=== PATIENT | female | born 1965 | race Caucasian/White ===

== ENCOUNTER → 2018-07-13 10:59 | Outpatient (CLI) | payer OTHER, SELFPAY ==
--- NOTE | 2018-07-13 | DI.MG.S_ITS ---
BILATERAL DIGITAL SCREENING MAMMOGRAM 3D/2D WITH CAD: 07/13/2018 CLINICAL: Routine screening. Comparison is made to exams dated: 07/11/2017 mammogram, 07/05/2016 mammogram, and 07/03/2015 mammogram - [facility]. There are scattered fibroglandular elements in both breasts. Current study was also evaluated with a Computer Aided Detection (CAD) system. No significant masses, calcifications, or other findings are seen in either breast. There has been no significant interval change. IMPRESSION: NEGATIVE There is no mammographic evidence of malignancy. A 1 year screening mammogram is recommended. This exam was interpreted at Station ID: [id number]. NOTE: For mammograms, a report in lay terms will be sent to the patient. Approximately 15% of breast malignancies will not be visualized mammographically. In the management of a palpable breast mass, a negative mammogram must not discourage biopsy of a clinically suspicious lesion. Electronically Signed By: Missy gregory/ban:07/13/2018 11:54:10 letter sent: Normal Exam ACR BI-RADS Category 1: Negative 3341F
== END ==
PROVIDERS: PCP Family Medicine; Visit Provider Family Medicine
DX: Z12.31 Encounter for screening mammogram for malignant neoplasm of breast (principal)
CPT/HCPCS: 77063; 77067

== ENCOUNTER → 2018-07-27 07:58 | Outpatient (CLI) | payer OTHER, SELFPAY ==
[2018-07-27 09:20] LABS: Alanine Aminotransferase 27 IU/L (9-52); Albumin 4.1 g/dL (3.5-5.0); Albumin Globulin Ratio 1.4 (1.0-2.8); Alkaline Phosphatase 64 U/L (38-126); Aspartate Aminotransferase 22 IU/L (14-36); Bilirubin Total 0.5 mg/dL (0.2-1.3); Bilirubin Unconjugated 0.3 mg/dL (0.0-1.1); Blood Urea Nitrogen 16 mg/dL (7-17); Calcium 8.6 mg/dL (8.4-10.2); Carbon Dioxide 29 mmol/L (22-32); Chloride 102 mmol/L (98-107); Cholesterol 192 mg/dL (140-199); Estimated Glomerular Filt Rate > 60.0 mL/min (>60); Globulin 2.9 g/dL (1.7-4.1); Glucose 86 mg/dL (70-100); HDL Cholesterol 93 mg/dL (40-60); HEMOLYSIS < 15 (0-50); LDL Cholesterol Calculated 81 mg/dL (<100); Potassium 4.2 mmol/L (3.4-5.1); Sodium 140 mmol/L (137-145); Triglycerides 88 mg/dL (35-150)
[2018-07-27 10:06] LABS: Vitamin D 25 Hydroxy (D3) 18.7 ng/mL (30.0-100.0)
== END ==
PROVIDERS: PCP Family Medicine; Visit Provider Podiatrist
DX: B35.3 Tinea pedis (principal); E55.9 Vitamin D deficiency, unspecified; E78.00 Pure hypercholesterolemia, unspecified; K76.89 Other specified diseases of liver; Z00.00 Encounter for general adult medical examination without abnormal findings
CPT/HCPCS: 36415; 80053; 80061; 80076; 82306

== ENCOUNTER → 2019-01-29 08:15 | Outpatient (CLI) | payer OTHER, SELFPAY ==
--- NOTE | 2019-01-29 08:17 | DI.RAD.S_ITS ---
PROCEDURE: FL BARIUM SWALLOW W SPEECH INDICATIONS: dysphagia and choking TECHNIQUE: Examination was conducted in conjunction with speech pathology per standard protocol. In the lateral projection, filming was performed of the patient swallowing. AP projection filming may also be performed with patient swallowing. COMPARISON: [facility], , BARIUM SWALLOW, 12/30/2014, 8:17. FINDINGS: Function: The oral preparatory phase appears normal, with proper containment. The subsequent oral propulsive phase, pharyngeal phase, and esophageal phase of swallowing also appear normal with all proffered substances. No laryngotracheal penetration or aspiration. No pathologic vallecular pooling. There is esophageal dysmotility. There is slightly delayed transit at the level of C5-C6 where there is mild anterior osteophyte formation. Morphology: No cricopharyngeal bar is identified. No cervical esophageal webs. No Zenker's diverticulum. No strictures. IMPRESSION: No tracheal aspiration. Incidentally noted esophageal dysmotility. Dictated by: Florian Simth M.D. on 01/29/2019 at 9:50 Approved by: Florian Smith M.D. on 01/29/2019 at 9:52
--- NOTE | 2019-01-29 14:13 | ST.SWALLOW ---
Care Team Visit Care Team Role Provider Type Addie Gao DO Attending Provider Physician Primary Care Provider Specialty: Family Practice Address: [address] [place] [address], [id number] Email: [email or web address] Modified Barium Swallow Study CLINICAL ANALYST Modified Barium Swallow Study Start: 01/29/19 11:02 Freq: Status: Active Protocol: Document 01/29/19 11:02 TLC (Rec: 01/29/19 11:11 TLC [id number]) Modified Barium Swallow Study Total Time Visit Start Time 08:30 Visit Stop Time 09:00 Total Visit Minutes [address] Gao Reason for Referral Dysphagia and choking Setting Setting Outpatient Care Patient Information Identification Type Name Patient History Mrs. Selby is a 53 year old with past medical history significant for neck injury, neck pain, dysphagia, anxiety and esophageal dilation ~5 years ago. She reports the last 4-5 months have been terrible with many episodes of choking and 5 instances of needing the Heimleich maneuver . Results of barium swallow study in 2014 revealed early or small Zenker's diverticulum with no other abnormality. A cervicial spine x-ray from December of 2017 revealed degenerative cervical disease C4-5 and C5- 6. Subjective Observations Mrs. Selby arrived on time and was pleasant and cooperative during the study. She reported she had anxiety about the study due to concern for choking. Patient Positioning Position View Lat-A/P Imaging Lateral View Textures Administered Trials Presented Thin Liquid via Spoon Thin Liquid via Cup [place] Liquid via Spoon [place] Liquid via Cup Honey Liquid via Spoon Pudding Thick Liquid via Spoon Regular Textures Oral Phase Source: MBSIMP (TM) (C) Bolus Specific Scoring Grid Lip Closure No Impairment (WNL) Tongue Control During Bolus Hold No Impairment (WNL) Bolus Prep/Mastication No Impairment (WNL) Bolus Transport/Lingual Motion No Impairment (WNL) Oral Residue No Impairment (WNL) Residue Clearing No Impairment (WNL) Additional Oral Phase Observations No oral dysphagia observed during the study. Pharyngeal Phase Source: MBSIMP (TM) (C) Bolus Specific Scoring Grid Soft Palate Elevation No Impairment (WNL) Tongue Base Strength/Range of Motion No Impairment (WNL) Clearance of Residue Along Tongue Base No Impairment (WNL) Laryngeal Elevation No Impairment (WNL) Anterior Hyoid Movement No Impairment (WNL) Epiglottic Range of Motion No Impairment (WNL) Vallecular Residue Yes: trace amount of residue in valleculae Laryngeal Vestibular Closure No Impairment (WNL) Upper Esophageal Sphincter Opening No Impairment (WNL) A/P View Textures Administered Trials Presented [place] Liquid via Spoon A/P View Observations Pharyngeal Contraction No Impairment (WNL) Esophageal Function Slowed Clearing Esophageal Clearance Upright Position Minimal Impairment Additional Observations Barium tablet attempted, but Mrs. Selby was unable to swallow. Esophagel retention observed in A-P view with trial of nectar thick liquid. Esophageal Observations Esophageal Function Observed delayed transit at the level of C5-C6 where there is mild anterior osteophyte formation per radiologist's report. Clinical Impressions Dysphagia Type Esophageal Findings No oral or pharyngeal dysphagia observed. Trace vallecular residue cleared with consecutive swallows. Residue observed to collect above osteophyte at C5-6 which impeded bolus flow with all consistencies. Amount of residue increased with thicker consistencies. Dry swallows were successful in clearing residue. Recommend follow up with PCP, GI follow-up at discretion of PCP given patient's history of esophageal dilation as well as Ortho consult at discretion of PCP given dx of degenerative cervical disease. Patient Appropriate for Therapy No Recommendations Diet Liquids Order Thin Diet Order Regular Medication Recommendation Whole in Carrier One at a Time Aspiration Precautions Recommended Precautions Upright at 90 Degrees Small Bites/Sips Double Swallow Treatment Plan Recommended Referrals Other GI Consult Additional Recommended Referrals Orthopedic
== END ==
PROVIDERS: PCP Family Medicine; Visit Provider Family Medicine
DX: R13.10 Dysphagia, unspecified (principal); K22.4 Dyskinesia of esophagus; T17.308A Unspecified foreign body in larynx causing other injury, initial encounter
CPT/HCPCS: 74230; 92611

== ENCOUNTER → 2019-04-28 09:12 | Outpatient (CLI) | payer OTHER, SELFPAY | PROVIDERS: PCP Family Medicine; Visit Provider Nurse Practitioner Family | DX: N89.8 Other specified noninflammatory disorders of vagina (principal) | CPT/HCPCS: 87210 ==

== ENCOUNTER → 2019-06-18 09:20 | Outpatient (CLI) | payer OTHER, SELFPAY ==
[2019-06-18 09:58] LABS: Add Manual Diff / Slide Review NO; Basophils Absolute Auto 0 /uL (0-100); Basophils Percent Auto 0.7 % (0-2); Eosinophils Absolute Auto 100 /uL (0-450); Eosinophils Percent Auto 1.5 % (2-4); Hemoglobin 13.7 g/dL (12.0-16.0); Lymphocytes Absolute Auto 1300 /uL (1100-4500); Lymphocytes Percent Auto 20.3 % (25-40); Mean Corpuscular HGB Conc 33.4 % (30-36); Mean Corpuscular Volume 89.9 fL (80-100); Monocytes Absolute Auto 800 /uL (0-900); Neutrophils Absolute Auto 4300 /uL (1500-7000); Neutrophils Percent Auto 65.5 % (50-75); Platelet Count 211 X10^3/uL (150-400); Red Blood Cell Count 4.56 X10^6/uL (4.0-5.2); Red Cell Distribution Width 13.9 % (11.6-14.8); White Blood Cell Count 6.5 X10^3/uL (4.5-11.0)
[2019-06-18 10:32] LABS: Alanine Aminotransferase 14 IU/L (9-52); Albumin 4.6 g/dL (3.5-5.0); Albumin Globulin Ratio 1.5 (1.0-2.8); Alkaline Phosphatase 96 U/L (38-126); Aspartate Aminotransferase 22 IU/L (14-36); BUN Creatinine Ratio 18.6 (6-22); Bilirubin Total 0.7 mg/dL (0.2-1.3); Blood Urea Nitrogen 13 mg/dL (7-17); Calcium 9.6 mg/dL (8.4-10.2); Carbon Dioxide 29 mmol/L (22-32); Chloride 101 mmol/L (98-107); Cholesterol 223 mg/dL (140-199); Estimated Glomerular Filt Rate > 60.0 mL/min (>60); Glucose 85 mg/dL (70-100); HDL Cholesterol 104 mg/dL (40-60); HEMOLYSIS < 15 (0-50); LDL Cholesterol Calculated 96 mg/dL (<100); Potassium 4.4 mmol/L (3.4-5.1); Sodium 140 mmol/L (137-145); Total Protein 7.6 g/dL (6.3-8.2); Triglycerides 116 mg/dL (35-150)
[2019-06-18 10:47] LABS: Vitamin D 25 Hydroxy (D3) 28.4 ng/mL (30.0-100.0)
== END ==
PROVIDERS: PCP Family Medicine; Visit Provider Family Medicine
DX: Z13.220 Encounter for screening for lipoid disorders (principal); R13.10 Dysphagia, unspecified; E55.9 Vitamin D deficiency, unspecified
CPT/HCPCS: 36415; 80053; 80061; 82306; 85025

== ENCOUNTER → 2019-07-15 07:51 | Outpatient (CLI) | payer OTHER, SELFPAY ==
--- NOTE | 2019-07-15 07:53 | DI.MG.S_ITS ---
BILATERAL DIGITAL SCREENING MAMMOGRAM 3D/2D WITH CAD: 07/15/2019 CLINICAL: Routine screening. Comparison is made to exams dated: 07/13/2018 mammogram, 07/11/2017 mammogram, 07/05/2016 mammogram, 07/03/2015 mammogram, 07/01/2014 mammogram, and 06/21/2013 mammogram - [facility]. There are scattered fibroglandular elements in both breasts. Current study was also evaluated with a Computer Aided Detection (CAD) system. No significant masses, calcifications, or other findings are seen in either breast. There has been no significant interval change. IMPRESSION: NEGATIVE There is no mammographic evidence of malignancy. A 1 year screening mammogram is recommended. This exam was interpreted at Station ID: [id number]. NOTE: For mammograms, a report in lay terms will be sent to the patient. Approximately 15% of breast malignancies will not be visualized mammographically. In the management of a palpable breast mass, a negative mammogram must not discourage biopsy of a clinically suspicious lesion. Electronically Signed By: Terence brothers/ban:07/15/2019 08:22:10 letter sent: Normal Exam ACR BI-RADS Category 1: Negative 3341F
== END ==
PROVIDERS: PCP Family Medicine; Visit Provider Family Medicine
DX: Z12.31 Encounter for screening mammogram for malignant neoplasm of breast (principal)
CPT/HCPCS: 77063; 77067

== ENCOUNTER → 2019-08-19 10:09 | Outpatient (CLI) | payer OTHER, SELFPAY ==
[2019-08-19 10:13] LABS: Bacteria Urine None Seen; RBC Urine None Seen (0-5/HPF)
[2019-08-19 10:45] LABS: Appearance Urine UA CLEAR; Bilirubin Urine UA NEGATIVE (NEGATIVE); Color Urine UA YELLOW; Glucose Urine UA NEGATIVE (Negative); Ketones Urine UA NEGATIVE (NEGATIVE); Leukocyte Esterase Urine UA TRACE (NEGATIVE); Nitrite Urine UA NEGATIVE (Negative); Occult Blood Urine UA NEGATIVE (Negative); Protein Urine UA NEGATIVE (Negative); Specific Gravity Urine UA <=1.005 (1.000-1.035); Urobilinogen Urine UA 0.2 E.U./dL (0.2)
[2019-08-19 10:55] LABS: Culture Indicated Urine Specimen Cultured; Squamous Epithelial Cell Urine 0-1 /HPF (0-5/HPF); WBC Urine 5-10/HPF (0-5/HPF)
== END ==
PROVIDERS: PCP Family Medicine; Visit Provider Family Medicine
DX: R30.0 Dysuria (principal)
CPT/HCPCS: 81001; 87077; 87086; 87186

== ENCOUNTER → 2020-01-10 09:06 | Outpatient (CLI) | payer OTHER, SELFPAY ==
[2020-01-10 09:25] LABS: Bacteria Urine None Seen
[2020-01-10 10:18] LABS: Appearance Urine UA SL CLOUDY; Bilirubin Urine UA 1+ (NEGATIVE); Color Urine UA RED; Glucose Urine UA TRACE g/dL (Negative); Ketones Urine UA NEGATIVE (NEGATIVE); Leukocyte Esterase Urine UA 2+ (NEGATIVE); Nitrite Urine UA POSITIVE (Negative); Occult Blood Urine UA 3+ (Negative); Protein Urine UA 3+ (Negative); Specific Gravity Urine UA <=1.005 (1.000-1.035); Urobilinogen Urine UA 0.2 E.U./dL (0.2)
[2020-01-10 10:52] LABS: Ictotest Urine Negative (Negative)
[2020-01-10 10:53] LABS: Culture Indicated Urine Specimen Cultured; RBC Urine >100/HPF (0-5/HPF); Squamous Epithelial Cell Urine 1-5 /HPF (0-5/HPF); WBC Urine 10-30/HPF (0-5/HPF)
== END ==
PROVIDERS: PCP Family Medicine; Referring Provider Family Medicine; Visit Provider Family Medicine
DX: R30.0 Dysuria (principal); R35.0 Frequency of micturition
CPT/HCPCS: 81001; 87086

== ENCOUNTER → 2020-01-20 09:19 | Outpatient (CLI) | payer OTHER, SELFPAY ==
[2020-01-20 09:26] LABS: Bacteria Urine None Seen; RBC Urine None Seen (0-5/HPF); WBC Urine None Seen (0-5/HPF)
[2020-01-20 10:15] LABS: Appearance Urine UA CLEAR; Bilirubin Urine UA NEGATIVE (NEGATIVE); Color Urine UA YELLOW; Glucose Urine UA NEGATIVE (Negative); Ketones Urine UA NEGATIVE (NEGATIVE); Leukocyte Esterase Urine UA NEGATIVE (NEGATIVE); Nitrite Urine UA NEGATIVE (Negative); Occult Blood Urine UA NEGATIVE (Negative); Protein Urine UA NEGATIVE (Negative); Specific Gravity Urine UA <=1.005 (1.000-1.035); Urobilinogen Urine UA 0.2 E.U./dL (0.2)
[2020-01-20 10:17] LABS: pH Urine UA 6.5 (4.5-8.0)
[2020-01-20 10:29] LABS: Culture Indicated Urine Cult Not Indicated; Squamous Epithelial Cell Urine 0-1 /HPF (0-5/HPF)
== END ==
PROVIDERS: PCP Family Medicine; Referring Provider Family Medicine; Visit Provider Family Medicine
DX: R30.0 Dysuria (principal)
CPT/HCPCS: 81001

== ENCOUNTER → 2020-07-29 08:58 | Outpatient (CLI) | payer OTHER, SELFPAY ==
--- NOTE | 2020-07-29 08:58 | DI.MG.S_ITS ---
BILATERAL DIGITAL SCREENING MAMMOGRAM 3D/2D WITH CAD: 07/29/2020 CLINICAL: Routine screening. Comparison is made to exams dated: 07/15/2019 mammogram, 07/13/2018 mammogram, and 07/11/2017 mammogram - [facility]. There are scattered fibroglandular elements in both breasts. Current study was also evaluated with a Computer Aided Detection (CAD) system. No significant masses, calcifications, or other findings are seen in either breast. There has been no significant interval change. IMPRESSION: NEGATIVE There is no mammographic evidence of malignancy. A 1 year screening mammogram is recommended. This exam was interpreted at Station ID: [id number]. NOTE: For mammograms, a report in lay terms will be sent to the patient. Approximately 15% of breast malignancies will not be visualized mammographically. In the management of a palpable breast mass, a negative mammogram must not discourage biopsy of a clinically suspicious lesion. Electronically Signed By: Rick Phoenix acr/ban:07/30/2020 18:29:55 letter sent: Normal Exam ACR BI-RADS Category 1: Negative 3341F
== END ==
PROVIDERS: PCP Family Medicine; Referring Provider Family Medicine; Visit Provider Family Medicine
DX: Z12.31 Encounter for screening mammogram for malignant neoplasm of breast (principal)
CPT/HCPCS: 77063; 77067

== ENCOUNTER → 2020-09-12 07:28 | Outpatient (CLI) | payer OTHER, SELFPAY ==
[2020-09-12 08:18] LABS: Add Manual Diff / Slide Review NO; Basophils Absolute Auto 0 /uL (0-100); Basophils Percent Auto 0.8 % (0-2); Eosinophils Absolute Auto 100 /uL (0-450); Eosinophils Percent Auto 2.8 % (2-4); Hemoglobin 13.7 g/dL (12.0-16.0); Lymphocytes Absolute Auto 1700 /uL (1100-4500); Lymphocytes Percent Auto 38.4 % (25-40); Mean Corpuscular HGB Conc 33.4 % (30-36); Mean Corpuscular Hemoglobin 29.7 PG (26-34); Mean Corpuscular Volume 88.8 fL (80-100); Monocytes Absolute Auto 500 /uL (0-900); Monocytes Percent Auto 11.1 % (3-14); Neutrophils Absolute Auto 2100 /uL (1500-7000); Neutrophils Percent Auto 46.9 % (50-75); Platelet Count 189 X10^3/uL (150-400); Red Blood Cell Count 4.62 X10^6/uL (4.0-5.2); Red Cell Distribution Width 13.6 % (11.6-14.8); White Blood Cell Count 4.5 X10^3/uL (4.5-11.0)
[2020-09-12 08:24] LABS: Alanine Aminotransferase 14 IU/L (<35); Albumin 4.3 g/dL (3.5-5.0); Albumin Globulin Ratio 1.4 (1.0-2.8); Alkaline Phosphatase 78 U/L (38-126); Aspartate Aminotransferase 25 IU/L (14-36); BUN Creatinine Ratio 20.5 (6-22); Bilirubin Total 0.5 mg/dL (0.2-1.3); Blood Urea Nitrogen 16 mg/dL (7-17); Calcium 9.1 mg/dL (8.4-10.2); Carbon Dioxide 32 mmol/L (22-32); Chloride 104 mmol/L (98-107); Cholesterol 232 mg/dL (140-199); Estimated Glomerular Filt Rate > 60.0 mL/min (>60); Glucose 94 mg/dL (70-100); HDL Cholesterol 105 mg/dL (40-60); HEMOLYSIS < 15 (0-50); LDL Cholesterol Calculated 111 mg/dL (<100); Potassium 4.1 mmol/L (3.4-5.1); Sodium 138 mmol/L (137-145); Total Protein 7.3 g/dL (6.3-8.2); Triglycerides 82 mg/dL (35-150)
[2020-09-12 09:03] LABS: Vitamin D 25 Hydroxy (D3) 25.6 ng/mL (30.0-100.0)
[2020-09-12 09:18] LABS: Thyroid Stimulating Hormone 2.49 uIU/mL (0.47-4.68)
== END ==
PROVIDERS: PCP Family Medicine; Referring Provider Family Medicine; Visit Provider Family Medicine
DX: E55.9 Vitamin D deficiency, unspecified (principal); Z13.0 Encounter for screening for diseases of the blood and blood-forming organs and certain disorders involving the immune mechanism; Z13.1 Encounter for screening for diabetes mellitus; Z13.220 Encounter for screening for lipoid disorders; Z13.29 Encounter for screening for other suspected endocrine disorder
CPT/HCPCS: 36415; 80053; 80061; 82306; 84443; 85025

== ENCOUNTER → 2020-11-29 08:18 | Outpatient (CLI) | payer OTHER, SELFPAY ==
[2020-11-29] MEDS: COVID-19 VACC #1, MRNA(MOD) 100 MCG/0.5 ML VIAL IM (08:27)
--- NOTE | 2020-11-29 11:40 | PC.NURSE ---
Addendum entered by Karime Sylvester R.N. 11/29/20 11:54: documented by wrong nurse. Original Note: Returned after40 minutes with itching face and chest tightness.. 0920 took 50 mg of her own Benadryl 157/80 O2 sat 100% pulse 87, 136//65 O2 sat 100% P 72 @ 925, feeling improved 138/80 Discharged improved 138/80 O2 sat 100 %. Patient admits she has anxiety and was recommended to medicate prior to next shot
--- NOTE | 2020-11-29 11:55 | PC.NURSE ---
0920 returned to clinic complaining of chest tightness, and clammy.. took 50 mg of her own Benadryl immediately, BP 157/ 80 p 87 O2 sat 100%, 136/65 p72 )2 100 % . last VS 136/80 p 76 O2 100 %... feeling much improver , skin dry. Patient states she has anxiety .. advised to bring her Benadryl next time and take her anti anxiety meds. Bennie Phillips RN
== END ==
PROVIDERS: PCP Family Medicine; Visit Provider Internal Medicine
DX: Z23 Encounter for immunization (principal)
CPT/HCPCS: 0011A; 91301

== ENCOUNTER → 2020-12-07 09:34 | Outpatient (CLI) | payer OTHER, SELFPAY ==
[2020-12-07 09:40] LABS: RBC Urine None Seen (0-5/HPF)
[2020-12-07 10:29] LABS: Appearance Urine UA CLEAR; Bilirubin Urine UA NEGATIVE (NEGATIVE); Color Urine UA ORANGE; Glucose Urine UA TRACE g/dL (Negative); Ketones Urine UA NEGATIVE (NEGATIVE); Leukocyte Esterase Urine UA TRACE (NEGATIVE); Nitrite Urine UA POSITIVE (Negative); Occult Blood Urine UA NEGATIVE (Negative); Protein Urine UA 1+ (Negative); Specific Gravity Urine UA 1.015 (1.000-1.035)
[2020-12-07 10:43] LABS: Bacteria Urine Few (2-10); Culture Indicated Urine Specimen Cultured; Squamous Epithelial Cell Urine 0-1 /HPF (0-5/HPF); WBC Urine 1-5/HPF (0-5/HPF)
== END ==
PROVIDERS: PCP Family Medicine; Referring Provider Family Medicine; Visit Provider Family Medicine
DX: R30.0 Dysuria (principal); R31.9 Hematuria, unspecified
CPT/HCPCS: 81001; 87086

== ENCOUNTER → 2021-01-03 15:12 | Outpatient (CLI) | payer OTHER, SELFPAY ==
[2021-01-03] MEDS: COVID-19 VACC #2, MRNA(MOD) 100 MCG/0.5 ML VIAL IM (15:19)
== END ==
PROVIDERS: PCP Family Medicine; Visit Provider Internal Medicine
DX: Z23 Encounter for immunization (principal)
CPT/HCPCS: 0012A; 91301

== ENCOUNTER → 2021-06-26 08:18 | Outpatient (CLI) | payer OTHER, SELFPAY ==
[2021-06-26 09:45] LABS: Add Manual Diff / Slide Review NO; Basophils Absolute Auto 0 /uL (0-100); Basophils Percent Auto 0.7 % (0-2); Eosinophils Absolute Auto 100 /uL (0-450); Eosinophils Percent Auto 2.8 % (2-4); Hematocrit 38.9 % (36-46); Hemoglobin 13.1 g/dL (12.0-16.0); Lymphocytes Absolute Auto 1200 /uL (1100-4500); Lymphocytes Percent Auto 32.1 % (25-40); Mean Corpuscular HGB Conc 33.6 % (30-36); Mean Corpuscular Hemoglobin 29.6 PG (26-34); Mean Corpuscular Volume 88.2 fL (80-100); Monocytes Absolute Auto 300 /uL (0-900); Monocytes Percent Auto 9.2 % (3-14); Neutrophils Absolute Auto 2100 /uL (1500-7000); Neutrophils Percent Auto 55.2 % (50-75); Platelet Count 194 X10^3/uL (150-400); Red Blood Cell Count 4.41 X10^6/uL (4.0-5.2); Red Cell Distribution Width 13.2 % (11.6-14.8); White Blood Cell Count 3.7 X10^3/uL (4.5-11.0)
[2021-06-26 10:09] LABS: Alanine Aminotransferase 14 IU/L (<35); Albumin 4.2 g/dL (3.5-5.0); Albumin Globulin Ratio 1.6 (1.0-2.8); Alkaline Phosphatase 76 U/L (38-126); Aspartate Aminotransferase 25 IU/L (14-36); BUN Creatinine Ratio 15.5 (6-22); Bilirubin Total 0.5 mg/dL (0.2-1.3); Blood Urea Nitrogen 11 mg/dL (7-17); Calcium 9.1 mg/dL (8.4-10.2); Carbon Dioxide 27 mmol/L (22-32); Chloride 106 mmol/L (98-107); Cholesterol 210 mg/dL (140-199); Estimated Glomerular Filt Rate > 60.0 mL/min (>60); Globulin 2.6 g/dL (1.7-4.1); Glucose 92 mg/dL (70-100); HDL Cholesterol 99 mg/dL (40-60); HEMOLYSIS < 15 (0-50); LDL Cholesterol Calculated 95 mg/dL (<100); Potassium 3.9 mmol/L (3.4-5.1); Sodium 139 mmol/L (137-145); Total Protein 6.8 g/dL (6.3-8.2); Triglycerides 81 mg/dL (35-150)
[2021-06-26 10:19] LABS: Vitamin D 25 Hydroxy (D3) 24.5 ng/mL (30.0-100.0)
[2021-06-26 10:31] LABS: TSH w/ Reflex to FT4 1.55 uIU/mL (0.47-4.68)
== END ==
PROVIDERS: PCP Family Medicine; Referring Provider Family Medicine; Visit Provider Family Medicine
DX: E55.9 Vitamin D deficiency, unspecified (principal); K76.89 Other specified diseases of liver; E78.5 Hyperlipidemia, unspecified
CPT/HCPCS: 36415; 80053; 80061; 82306; 84443; 85025

== ENCOUNTER → 2021-07-02 09:35 | Outpatient (CLI) | payer OTHER, SELFPAY | PROVIDERS: PCP Family Medicine; Visit Provider Family Medicine | DX: N89.8 Other specified noninflammatory disorders of vagina (principal) | CPT/HCPCS: 87210 ==

== ENCOUNTER → 2021-07-31 17:22 | Outpatient (CLI) | payer OTHER, SELFPAY ==
--- NOTE | 2021-07-31 | DI.MG.S_ITS ---
BILATERAL DIGITAL SCREENING MAMMOGRAM 3D/2D WITH CAD: 07/31/2021 CLINICAL: Routine screening. Comparison is made to exams dated: 07/29/2020 mammogram, 07/15/2019 mammogram, and 07/13/2018 mammogram - [facility]. There are scattered fibroglandular elements in both breasts. Current study was also evaluated with a Computer Aided Detection (CAD) system. No significant masses, calcifications, or other findings are seen in either breast. There has been no significant interval change. IMPRESSION: NEGATIVE There is no mammographic evidence of malignancy. A 1 year screening mammogram is recommended. This exam was interpreted at Station ID: [id number]. NOTE: For mammograms, a report in lay terms will be sent to the patient. Approximately 15% of breast malignancies will not be visualized mammographically. In the management of a palpable breast mass, a negative mammogram must not discourage biopsy of a clinically suspicious lesion. Electronically Signed By: Cash Browne M.D., jr/ban:08/01/2021 11:19:07 letter sent: Normal Exam ACR BI-RADS Category 1: Negative 3341F
[2021-07-31 18:36] LABS: Vitamin D 25 Hydroxy (D3) 48.1 ng/mL (30.0-100.0)
== END ==
PROVIDERS: PCP Family Medicine; Referring Provider Family Medicine; Visit Provider Family Medicine
DX: Z12.31 Encounter for screening mammogram for malignant neoplasm of breast (principal); E55.9 Vitamin D deficiency, unspecified
CPT/HCPCS: 36415; 77063; 77067; 82306

== ENCOUNTER → 2021-10-21 14:35 | Outpatient (CLI) | payer OTHER, SELFPAY | PROVIDERS: PCP Family Medicine; Visit Provider Nurse Practitioner Family | DX: N39.0 Urinary tract infection, site not specified (principal) | CPT/HCPCS: 87077; 87086; 87186 ==

== ENCOUNTER → 2022-03-04 18:22 | Outpatient (CLI) | payer OTHER, SELFPAY | PROVIDERS: PCP Family Medicine; Visit Provider Nurse Practitioner Family | DX: R30.0 Dysuria (principal) | CPT/HCPCS: 87086 ==

== ENCOUNTER → 2022-03-28 10:58 | Outpatient (CLI) | payer OTHER, SELFPAY | PROVIDERS: PCP Family Medicine; Visit Provider Family Medicine | DX: N30.90 Cystitis, unspecified without hematuria (principal) | CPT/HCPCS: 87086 ==

== ENCOUNTER → 2022-07-17 08:39 | Outpatient (CLI) | payer OTHER, SELFPAY ==
[2022-07-17 09:27] LABS: Alanine Aminotransferase 21 IU/L (<35); Albumin 4.2 g/dL (3.5-5.0); Albumin Globulin Ratio 1.4 (1.0-2.8); Alkaline Phosphatase 90 U/L (38-126); Aspartate Aminotransferase 24 IU/L (14-36); BUN Creatinine Ratio 19.4 (6-22); Bilirubin Total 0.5 mg/dL (0.2-1.3); Blood Urea Nitrogen 14 mg/dL (7-17); Calcium 8.9 mg/dL (8.4-10.2); Carbon Dioxide 25 mmol/L (22-32); Chloride 105 mmol/L (98-107); Cholesterol 220 mg/dL (140-199); Estimated Glomerular Filt Rate > 60 mL/min (>60); Globulin 3.1 g/dL (1.7-4.1); Glucose 94 mg/dL (70-100); HDL Cholesterol 98 mg/dL (40-60); HEMOLYSIS < 15 (0-50); LDL Cholesterol Calculated 110 mg/dL (<100); Potassium 4.1 mmol/L (3.4-5.1); Sodium 139 mmol/L (137-145); Total Protein 7.3 g/dL (6.3-8.2); Triglycerides 58 mg/dL (35-150)
[2022-07-17 09:41] LABS: Vitamin D 25 Hydroxy (D3) 27.9 ng/mL (30.0-100.0)
[2022-07-17 10:53] LABS: Add Manual Diff / Slide Review NO; Basophils Absolute Auto 0 /uL (0-100); Basophils Percent Auto 0.8 % (0-2); Eosinophils Absolute Auto 100 /uL (0-450); Eosinophils Percent Auto 2.8 % (2-4); Hematocrit 40.9 % (36-46); Hemoglobin 13.5 g/dL (12.0-16.0); Lymphocytes Absolute Auto 1200 /uL (1100-4500); Lymphocytes Percent Auto 28.2 % (25-40); Mean Corpuscular HGB Conc 32.9 % (30-36); Mean Corpuscular Volume 88.1 fL (80-100); Monocytes Absolute Auto 400 /uL (0-900); Monocytes Percent Auto 9.1 % (3-14); Neutrophils Absolute Auto 2600 /uL (1500-7000); Neutrophils Percent Auto 59.1 % (50-75); Platelet Count 208 X10^3/uL (150-400); Red Blood Cell Count 4.64 X10^6/uL (4.0-5.2); Red Cell Distribution Width 13.2 % (11.6-14.8); White Blood Cell Count 4.4 X10^3/uL (4.5-11.0)
== END ==
PROVIDERS: PCP Family Medicine; Referring Provider Family Medicine; Visit Provider Family Medicine
DX: K76.89 Other specified diseases of liver (principal); E55.9 Vitamin D deficiency, unspecified; E78.5 Hyperlipidemia, unspecified
CPT/HCPCS: 36415; 80053; 80061; 82306; 85025

== ENCOUNTER → 2022-08-01 08:12 | Outpatient (CLI) | payer OTHER, SELFPAY ==
--- NOTE | 2022-08-01 08:14 | DI.MG.S_ITS ---
BILATERAL DIGITAL SCREENING MAMMOGRAM 3D/2D WITH CAD: 08/01/2022 CLINICAL: Routine screening. Comparison is made to exams dated: 07/31/2021 mammogram, 07/29/2020 mammogram, 07/15/2019 mammogram, and 07/13/2018 mammogram - [facility]. There are scattered areas of fibroglandular density in both breasts (category b / 25%-50% glandular tissue). Current study was also evaluated with a Computer Aided Detection (CAD) system. No significant masses, calcifications, or other findings are seen in either breast. There has been no significant interval change. IMPRESSION: NEGATIVE There is no mammographic evidence of malignancy. A 1 year screening mammogram is recommended. Based on the Tyrer Cuzick model (a risk assessment model) the patient's lifetime risk is 9.9% and her 10 year risk is 3.4%. According to the ACR, ACS, and NCCN guidelines, an annual breast MRI exam along with mammogram is recommended if the patient's lifetime risk is 20% or greater. This exam was interpreted at Station ID: [id number]. NOTE: For mammograms, a report in lay terms will be sent to the patient. Approximately 15% of breast malignancies will not be visualized mammographically. In the management of a palpable breast mass, a negative mammogram must not discourage biopsy of a clinically suspicious lesion. Electronically Signed By: Terence brothers/ban:08/01/2022 08:37:35 letter sent: Normal Exam ACR BI-RADS Category 1: Negative 3341F
== END ==
PROVIDERS: PCP Family Medicine; Referring Provider Family Medicine; Visit Provider Family Medicine
DX: Z12.31 Encounter for screening mammogram for malignant neoplasm of breast (principal)
CPT/HCPCS: 77063; 77067

== ENCOUNTER → 2022-08-20 10:13 | Outpatient (CLI) | payer OTHER, SELFPAY ==
[2022-08-20 11:37] LABS: Appearance Urine UA CLEAR; Bilirubin Urine UA NEGATIVE (NEGATIVE); Color Urine UA YELLOW; Glucose Urine UA NEGATIVE (Negative); Ketones Urine UA NEGATIVE (NEGATIVE); Leukocyte Esterase Urine UA 1+ (NEGATIVE); Nitrite Urine UA NEGATIVE (Negative); Occult Blood Urine UA NEGATIVE (Negative); Protein Urine UA NEGATIVE (Negative); Specific Gravity Urine UA <=1.005 (1.000-1.035); Urobilinogen Urine UA 0.2 E.U./dL (0.2)
[2022-08-20 11:44] LABS: pH Urine UA 6.5 (4.5-8.0)
[2022-08-20 11:53] LABS: WBC Urine 1-5/HPF (0-5/HPF)
[2022-08-20 11:54] LABS: Bacteria Urine Few (2-10); Culture Indicated Urine Specimen Cultured; RBC Urine None Seen (0-5/HPF); Squamous Epithelial Cell Urine 0-1 /HPF (0-5/HPF)
== END ==
PROVIDERS: PCP Family Medicine; Referring Provider Family Medicine; Visit Provider Family Medicine
DX: R30.0 Dysuria (principal)
CPT/HCPCS: 81003; 81015; 87077; 87086; 87186

== ENCOUNTER → 2022-09-24 17:12 | Outpatient (CLI) | payer OTHER, SELFPAY ==
[2022-09-24 17:46] LABS: Appearance Urine UA CLEAR; Bilirubin Urine UA NEGATIVE (NEGATIVE); Color Urine UA YELLOW; Glucose Urine UA NEGATIVE (Negative); Ketones Urine UA NEGATIVE (NEGATIVE); Leukocyte Esterase Urine UA 1+ (NEGATIVE); Occult Blood Urine UA NEGATIVE (Negative); Protein Urine UA TRACE (Negative); Specific Gravity Urine UA 1.025 (1.000-1.035)
[2022-09-24 17:54] LABS: pH Urine UA 5.5 (4.5-8.0)
[2022-09-24 17:55] LABS: Bacteria Urine Moderate (10-30); Culture Indicated Urine Specimen Cultured; Nitrite Urine UA POSITIVE (Negative); RBC Urine 0-1/HPF (0-5/HPF); Squamous Epithelial Cell Urine 1-5 /HPF (0-5/HPF); Transitional Epi Cells Urine 1-5/HPF (0-5/HPF); WBC Urine 10-30/HPF (0-5/HPF)
== END ==
PROVIDERS: PCP Family Medicine; Referring Provider Family Medicine; Visit Provider Family Medicine
DX: R30.0 Dysuria (principal)
CPT/HCPCS: 81003; 81015; 87077; 87086; 87186

== ENCOUNTER → 2023-02-17 11:10 | Outpatient (CLI) | payer OTHER, SELFPAY ==
[2023-02-17 13:48] LABS: Appearance Urine UA CLEAR; Bilirubin Urine UA NEGATIVE (NEGATIVE); Color Urine UA YELLOW; Glucose Urine UA NEGATIVE (Negative); Ketones Urine UA NEGATIVE (NEGATIVE); Leukocyte Esterase Urine UA 1+ (NEGATIVE); Nitrite Urine UA NEGATIVE (Negative); Occult Blood Urine UA NEGATIVE (Negative); Protein Urine UA NEGATIVE (Negative); Urobilinogen Urine UA 0.2 E.U./dL (0.2)
[2023-02-17 13:58] LABS: Bacteria Urine Occasional (0-1); Culture Indicated Urine Specimen Cultured; RBC Urine 1-5/HPF (0-5/HPF); Squamous Epithelial Cell Urine 1-5 /HPF (0-5/HPF); WBC Urine 1-5/HPF (0-5/HPF)
== END ==
PROVIDERS: PCP Family Medicine; Referring Provider Physician Assistant; Visit Provider Physician Assistant
DX: R30.0 Dysuria (principal)
CPT/HCPCS: 81003; 81015; 87077; 87086; 87147

== ENCOUNTER → 2023-03-21 12:41 | Outpatient (CLI) | payer OTHER, SELFPAY ==
[2023-03-21 13:05] LABS: Appearance Urine UA CLEAR; Bilirubin Urine UA NEGATIVE (NEGATIVE); Color Urine UA YELLOW; Glucose Urine UA NEGATIVE (Negative); Ketones Urine UA NEGATIVE (NEGATIVE); Leukocyte Esterase Urine UA TRACE (NEGATIVE); Nitrite Urine UA NEGATIVE (Negative); Occult Blood Urine UA NEGATIVE (Negative); Protein Urine UA NEGATIVE (Negative); Urobilinogen Urine UA 0.2 E.U./dL (0.2)
[2023-03-21 13:10] LABS: Bacteria Urine None Seen; Culture Indicated Urine Cult Not Indicated; RBC Urine None Seen (0-5/HPF); Squamous Epithelial Cell Urine None Seen (0-5/HPF); WBC Urine None Seen (0-5/HPF)
== END ==
PROVIDERS: PCP Pediatrics; Referring Provider Pediatrics; Visit Provider Pediatrics
DX: R39.9 Unspecified symptoms and signs involving the genitourinary system (principal); R10.9 Unspecified abdominal pain; Z87.440 Personal history of urinary (tract) infections
CPT/HCPCS: 81001; 87086

== ENCOUNTER → 2023-06-12 14:13 | Outpatient (CLI) | payer OTHER, SELFPAY ==
[2023-06-12 14:49] LABS: Add Manual Diff / Slide Review NO; Basophils Absolute Auto 0 /uL (0-100); Basophils Percent Auto 0.8 % (0-2); Eosinophils Absolute Auto 100 /uL (0-450); Eosinophils Percent Auto 1.7 % (2-4); Hematocrit 40.6 % (36-46); Hemoglobin 13.7 g/dL (12.0-16.0); Lymphocytes Absolute Auto 1600 /uL (1100-4500); Lymphocytes Percent Auto 29.9 % (25-40); Mean Corpuscular HGB Conc 33.7 % (30-36); Mean Corpuscular Hemoglobin 29.8 PG (26-34); Mean Corpuscular Volume 88.5 fL (80-100); Monocytes Absolute Auto 600 /uL (0-900); Monocytes Percent Auto 11.6 % (3-14); Neutrophils Absolute Auto 3000 /uL (1500-7000); Platelet Count 208 X10^3/uL (150-400); Red Blood Cell Count 4.59 X10^6/uL (4.0-5.2); White Blood Cell Count 5.3 X10^3/uL (4.5-11.0)
[2023-06-12 15:22] LABS: Alanine Aminotransferase 20 IU/L (<35); Albumin 4.5 g/dL (3.5-5.0); Albumin Globulin Ratio 1.4 (1.0-2.8); Alkaline Phosphatase 81 U/L (38-126); Aspartate Aminotransferase 27 IU/L (14-36); BUN Creatinine Ratio 14.4 (6-22); Bilirubin Total 0.3 mg/dL (0.2-1.3); Blood Urea Nitrogen 15 mg/dL (7-17); Calcium 9.7 mg/dL (8.4-10.2); Carbon Dioxide 30 mmol/L (22-32); Chloride 101 mmol/L (98-107); Estimated Glomerular Filt Rate > 60 mL/min (>60); Globulin 3.2 g/dL (1.7-4.1); Glucose 98 mg/dL (70-100); HEMOLYSIS < 15 (0-50); Sodium 139 mmol/L (137-145); Total Protein 7.7 g/dL (6.3-8.2)
[2023-06-12 15:26] LABS: HEMOLYSIS < 15 (0-50); Iron 79 ug/dL (37-170)
[2023-06-12 15:36] LABS: Percent Iron Saturation 31 % (15-50); Total Iron Binding Capacity 259 ug/dL (265-497); Transferrin 231 mg/dL (206-381)
[2023-06-12 15:51] LABS: TSH w/ Reflex to FT4 1.09 uIU/mL (0.47-4.68)
[2023-06-12 16:10] LABS: Vitamin B12 746 pg/mL (239-931)
== END ==
PROVIDERS: PCP Pediatrics; Referring Provider Physician Assistant; Visit Provider Physician Assistant
DX: N23 Unspecified renal colic (principal); R19.4 Change in bowel habit; R53.83 Other fatigue; K76.89 Other specified diseases of liver
CPT/HCPCS: 36415; 80053; 82607; 83540; 83550; 84443; 85025

== ENCOUNTER → 2023-06-16 15:15 | Outpatient (CLI) | payer OTHER, SELFPAY ==
--- NOTE | 2023-06-16 | DI.US.S_ITS ---
PROCEDURE: US ABDOMEN COMPLETE INDICATIONS: HX FOCAL NODULER HYPERPLASIA. RUQ/BILAT FLANK PAIN. FATIGUE. TECHNIQUE: Real-time scanning was performed of the abdominal and retroperitoneal organs, with image documentation. COMPARISON: [facility], CT, ABDOMEN/PELVIS WITH CONTRAST, 03/02/2010, 0:20. [facility], US, ABDOMEN COMPLETE, 03/18/2014, 7:36. FINDINGS: Liver: The previous left lobe liver mass with associated contour abnormality of the left lobe measured 3.6 x 2.7 x 5.4 cm on ultrasound dated 03/18/2014. It is no longer identifiable by ultrasound. The previous ultrasound is the most recent cross-sectional imaging available. No other liver lesions are identified. Multiple liver cysts are noted. Gallbladder: Within normal limits. Biliary ducts: Intrahepatic bile ducts are non-dilated. Extrahepatic bile duct caliber measures 3.0 mm. Normal is 6-7 mm or less in diameter, or 10 mm or less post-cholecystectomy. Pancreas: Visualized portions of the pancreas are sonographically normal. Spleen: Spleen is normal in size and homogeneous in echotexture. Kidneys: Kidneys are normal in size and echotexture. Right kidney measures 9.3 cm long; left kidney measures 11.0 cm long. No hydronephrosis or nephrolithiasis. No solid masses. Aorta: Visualized aorta is normal in caliber at less than 3 cm. Iliacs: Proximal common iliac arteries are normal in caliber at less than 2.5 cm. IVC: Intrahepatic inferior vena cava is patent. Miscellaneous: No free abdominal fluid. IMPRESSION: 1. The previous left lobe liver mass is no longer identifiable. The liver is unremarkable without focal masses. 2. Otherwise unremarkable abdominal ultrasound. Dictated by: True Meadows M.D. on 06/16/2023 at 18:11 Approved by: True Meadows M.D. on 06/16/2023 at 18:15
== END ==
PROVIDERS: PCP Pediatrics; Referring Provider Physician Assistant; Visit Provider Physician Assistant
DX: N23 Unspecified renal colic (principal); R53.83 Other fatigue; K76.89 Other specified diseases of liver
CPT/HCPCS: 76700

== ENCOUNTER → 2023-08-04 | Outpatient (CLI) | payer OTHER, SELFPAY ==
--- NOTE | 2023-08-04 | DI.MG.S_ITS ---
BILATERAL DIGITAL SCREENING MAMMOGRAM 3D/2D WITH CAD: 08/04/2023 CLINICAL: Routine screening. Comparison is made to exams dated: 08/01/2022 mammogram, 07/31/2021 mammogram, and 07/29/2020 mammogram - [facility]. There are scattered areas of fibroglandular density in both breasts (category b / 25%-50% glandular tissue). Current study was also evaluated with a Computer Aided Detection (CAD) system. No significant masses, calcifications, or other findings are seen in either breast. There has been no significant interval change. IMPRESSION: NEGATIVE There is no mammographic evidence of malignancy. A 1 year screening mammogram is recommended. Based on the Tyrer Cuzick model (a risk assessment model) the patient's lifetime risk is 9.7% and her 10 year risk is 3.6%. According to the ACR, ACS, and NCCN guidelines, an annual breast MRI exam along with mammogram is recommended if the patient's lifetime risk is 20% or greater. This exam was interpreted at Station ID: [id number]. NOTE: For mammograms, a report in lay terms will be sent to the patient. Approximately 15% of breast malignancies will not be visualized mammographically. In the management of a palpable breast mass, a negative mammogram must not discourage biopsy of a clinically suspicious lesion. Electronically Signed By: Alysa oliver/ban:08/05/2023 12:15:43 letter sent: Normal Exam ACR BI-RADS Category 1: Negative 3341F
== END ==
PROVIDERS: PCP Physician Assistant; Referring Provider Physician Assistant; Visit Provider Physician Assistant
DX: Z12.31 Encounter for screening mammogram for malignant neoplasm of breast (principal)
CPT/HCPCS: 77063; 77067

== ENCOUNTER 2023-12-03 09:45 | Outpatient (RCR) | payer OTHER, SELFPAY ==
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
--- NOTE | 2023-10-20 16:39 | PT.OPPOC ---
Physical, Occupational & Speech Therapy At [facility] Current Diagnoses Pain in right shoulder (10/20/23) Stiffness of right shoulder, not elsewhere classified (10/20/23) Other injury of muscle, fascia and tendon of long head of biceps, right arm, subsequent encounter (10/20/23) Visit Care Team Role Provider Type Zuly Thrasher PA-C Family Provider Advanced Chassis Engineer Primary Care Provider Specialty: Medical Address: [address] [place] [address], [address], [place], [address] Email: [email or web address] Eun Jarrell MD Attending Provider Physician Referring Provider Specialty: Family Practice [facility] Address: [address] [place] [address], [address] Email: [email or web address] Plan Of Care PT-OP-T Assessment and Plan Start: 10/20/23 16:11 Freq: Status: Active Protocol: Document 10/20/23 09:45 DCW (Rec: 10/20/23 16:33 DCW [id number]) Physical Therapy Assessment Rehab Potential Rehabilitation Potential Good Evaluation Complexity Number of Personal Factors/Comorbidities 3 or More Number of Body Systems Impaired 4 or More Clinical Presentation at Evaluation Unstable Impairments Impairments Activity Tolerance,Functional Activities,Functional Mobility ,Pain,Posture,ROM,Soft Tissue Mobility,Strength Goals Two Impairment Right shoulder ROM limited to 130? flexion and 116? abduction Fdc Goal (LTG) Pt to improve pain-free right shoulder mobility to >145? 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 Accurate DDX difficult due to large number of limitations and positive special tests making narrowing down difficult. Most problematic area does appear to involve right LH biceps tendon, more likely bicipital tendonitis, although r/c injury or labral involvement both also possible. Additionally, pt cervical ROM limited and increased soft tissue tone in perispinal cervical musculature. Pt should benefit from skilled therapy focusing on improving cervical and shoulder ROM, decreasing pain/inflammation, improving shoulder strength, and decreasing tone. Physical Therapy Plan Frequency and Duration Frequency of Treatment 2x/Week Plan of Care Start Date 10/20/23 Plan of Care End Date 12/19/23 Therapeutic Interventions Therapeutic Interventions Home Exercise Program,Joint Mobilizations,Manual Therapy, Neuromuscular Re-education, Patient/Caregiver Education, Self-Care/Home Management,Soft Tissue Mobilization, Therapeutic Activities, Therapeutic Exercises Modalities Cold Pack/Ice Massage,Electric Stimulation,Hot Packs, Ultrasound Next Visit Focus/Plan Next Note Type Treatment Note Next Visit Plan Shoulder functional mobility, STM, cervical ROM Plan of Care Dates Plan of Care Start Date 10/20/23 Plan of Care End Date 12/19/23 Electronically Signed by: Darío Cisneros, PT 10/20/23 0931 If you are in agreement with this Plan of Care, please return a signed and dated copy. I have reviewed this Plan of Care and certify that the skilled therapy services above are required to meet the patient?s needs. Physician Signature Date Printed Name and Credentials Clinical Instructor Signature Printed Name and Credentials
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
--- NOTE | 2023-10-29 10:35 | PT.OTN ---
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 Notes previously she has undergone PT, and it has been beneficial for a time, but then her pain typically comes back. 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 Additionally, pt notes that ~30 years ago, she worked at the [employer], and at one point had a roof brady come down and hit her head, which has resulted in long- standing neck pain. Currently neck and shoulder are flared- up to the point they're impacting her work activities, hurts when performing activities like lifting her purse or taking a blanket off herslef in bed. PT-OP-C Subjective Start: 10/20/23 16:11 Freq: Status: Active Protocol: Document 10/29/23 09:52 SP (Rec: 10/29/23 10:36 SP [id number]) OP-PT Subjective Patient Comments Patient Comments Pt reports R shld and neck felt alot better after last tx with light ROM and massage. She reported had pain for few days after initial visit of exercises. She states arrives with sore into R 1st MTP thenar eminence, R UT and neck crunch turn L but painfree. She see chiropractor and did laser/ CP and back mobility yesterday. But she states anterior R shld is sore to touch pressure today. PT-OP-F Manual Assessment Start: 10/20/23 16:11 Freq: Status: Active Protocol: Document 10/20/23 09:45 DCW (Rec: 10/20/23 16:38 DCW [id number]) Manual Assessments Soft Tissue Assessment Soft Tissue Mobility Assessment Moderate tone and tenderness to palpation 2/4: Pain with wincing B UT, Scalenes, Suboccipitals, R Supraspinatus , R Infraspinatus, R Biceps Joint Mobility Assessment Joint Mobility Assessment CW rotation of C4 PT-OP-K Range of Motion Start: 10/20/23 16:11 Freq: Status: Active Protocol: Document 10/20/23 09:45 DCW (Rec: 10/20/23 16:38 DCW [id number]) Cervical Spine Range of Motion Cervical Spine Active Degrees Testing Position Sitting Flexion 40 Extension 40 Rotation Left 55 Rotation Right 55 Lateral Flexion Left 25 Lateral Flexion Right 25 ROM Limitations Soft Tissue Tightness,Bony Restriction,Muscle Tone,Pain Shoulder Goniometric Range of Motion Shoulder Right Active Shoulder ROM WFL No Testing Position Sitting Flexion 130 Abduction 116 External Rotation at 0 degrees Abduction 79 Internal Rotation Behind Back (text) T12 Left Active Shoulder ROM WFL Yes Testing Position Sitting Flexion 180 Abduction 180 External Rotation at 0 degrees Abduction 90 Internal Rotation Behind Back (text) T6 PT-OP-L Special Tests Start: 10/20/23 16:11 Freq: Status: Active Protocol: Document 10/20/23 09:45 DCW (Rec: 10/20/23 16:38 DCW [id number]) Special Tests Cervical Spine Special Tests Spurling's Test Test Results Positive Foraminal Compression Test Results Positive Shoulder Special Tests Speed's Biceps Test Results Positive R Passive ER Rotator Cuff Test Results Negative Painful Arc Test Results Positive R [employer] Impingement Test Results Positive R Grind Labrum Test Results Positive R Drop Arm Rotator Cuff Test Results Positive R Belly Press Test Results Positive R Apprehension Test Test Results Positive R PT-OP-M Strength Start: 10/20/23 16:11 Freq: Status: Active Protocol: Document 10/20/23 09:45 DCW (Rec: 10/20/23 16:38 DCW [id number]) Shoulder Strength Shoulder Manual Muscle Testing Right Flexion 3- Fair- Abduction (C5) 3- Fair- External Rotation 4 Good Internal Rotation 4 Good Comments Flexion and Abduction limited by pain PT-OP-Q Treatments Start: 10/20/23 16:11 Freq: Status: Active Protocol: Document 10/29/23 09:52 SP (Rec: 10/29/23 10:36 SP [id number]) Therapeutic Exercises Supine Exercises Chin Tuck Supine Exercise Name Chin tuck - Head lift 1 from pillow Reps/Minutes 1 SH x8 reps Comments cued maintain tuck, good form pnfree Sidelying Exercises open book Sidelying Exercise Name added to HEP: hand on head- provided HO not full range as image Side right Resistance AROM pnfree range- felt ok Reps/Minutes x6 reps Comments cued head back neutral /c trunk, tactile scapular post/ inf glide & TS rot Sitting Exercises CS rotation AROM Sitting Exercise Name reviewed HEP Side bilateral Reps/Minutes 5 reps hold 2 sec Comments sore/stiff turning, little crunchy not painful Trap stretch Sitting Exercise Name UT & LS & Scalene stretch Side bilateral Reps/Minutes 20 SH each Comments gentle pnfree range Standing Exercises scap squeeze Standing Exercise Name HEP reviewed /c chin tuck/nod sustained pnfre range Side bilateral Reps/Minutes X10 Comments Verbal and tactile cues Manual Therapy Treatment Soft Tissue Mobilization right biceps Body Location longhead bicep Mobilization Type Myofascial Release,Sustained Pressure,Other Intensity/Depth Superficial Body Position Hooklying Comments light gentle stroke massage /c feedback from pt, MWM elbow flex/ext /c limited reps due to pain reports pec Body Location right minor & distal major Mobilization Type Myofascial Release,Sustained Pressure,Other Intensity/Depth Superficial Body Position Hooklying Comments required pillow under right UE due to biceps stiffness light gentle strokes and PROM RUE IR/ ER/punching small range. Limited due to pain reports- stopped Cervical Body Location R Cervical perispinals, UT& LS , SCM, scalenes Mobilization Type Myofascial Release,Rolling, Sustained Pressure,Other Intensity/Depth Moderate Body Position Sidelying Comments R L ant/mid/posterior scalenes at ribs 1-2, VCs to breath from diaphragm Suboccipitals Body Location B Suboccipitals, SOR Mobilization Type Strumming,Sustained Pressure Body Position Hooklying Comments /c breath exhale cued allow head sink back toward table Joint Mobilizations R scapulothoracic Joint gentle Direction depression, retraction Grade II Body Position L SL Comments during manual Self-Care/Home Management Treatment Education Patient Education Body Mechanics,Home Exercise Program,Pain Management, Posture Other Education Ed use pillows between BLEs, anterior and posterior trunk and under RUE in L SL to support maintain RUE on R hip sleeping for scapular and postural alignment and carryover seated/standing, decrease anterior recruitment. Also mentioned use of CP for pain control support. PT-OP-T Assessment and Plan Start: 10/20/23 16:11 Freq: Status: Active Protocol: Document 10/29/23 09:52 SP (Rec: 10/29/23 10:36 SP [id number]) Physical Therapy Assessment Goals Two Impairment Right shoulder ROM limited to 130? flexion and 116? 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 Pt responded better to active scapular glide AAROM then AROM added short arm open book with cues for not UT recruitment/ painfree range. Painfree seated HEP review scap and CS retraction. Cued for pnfree range CS rotation and UT& LS and added SCM and Scalene stretches, sore on R turning R and L, ed pnfree range. Education provided for postural awareness and use of posture image to allow for self awareness of head over shlds and emphasis on elongation anterior and engagement posteriorly to decrease anterior R shld and neck recruitment. GOod understanding and is self use pillows and R UE on R hip alignment to decrease R anterior shld protaction PROM sleeping, best can. Discussed can use CP for pain control. Pt reported R shld felt little better leaving. Physical Therapy Plan Frequency and Duration Frequency of Treatment 2x/Week Plan of Care Start Date 10/20/23 Plan of Care End Date 12/19/23 Therapeutic Interventions Therapeutic Interventions Home Exercise Program,Joint Mobilizations,Manual Therapy, Neuromuscular Re-education, Patient/Caregiver Education, Self-Care/Home Management,Soft Tissue Mobilization, Therapeutic Activities, Therapeutic Exercises Modalities Cold Pack/Ice Massage,Electric Stimulation,Hot Packs, Ultrasound Next Visit Focus/Plan Next Note Type Treatment Note Next Visit Plan Assess response to manual. Review HEP tolerance. POC: Shoulder functional mobility, STM, cervical ROM
--- NOTE | 2023-11-19 10:31 | PT.OTN ---
Current Diagnoses Pain in right shoulder (11/19/23) Stiffness of right shoulder, not elsewhere classified (11/19/23) Other injury of muscle, fascia and tendon of long head of biceps, right arm, subsequent encounter (11/19/23) Physical Therapy Treatment Note PT-OP-A Visit Information Start: 10/20/23 16:11 Freq: Status: Active Protocol: Document 11/19/23 09:45 DCW (Rec: 11/19/23 10:31 DCW [id number]) Out-Patient Physical Therapy Visit Information Visit Information Visit Type Treatment Note Visit Start Time 09:45 Visit Stop Time 10:30 Visit Number 5 Number of SHAKE SPLITTER Visits 0 Evaluation Information Evaluation Date 10/20/23 Precautions Precautions Allergy to adhesive PT-OP-B Current Condition Start: 10/20/23 16:11 Freq: Status: Active Protocol: Document 10/20/23 09:45 DCW (Rec: 10/20/23 16:33 DCW [id number]) Current Condition History of Current Condition Onset Date Multi-year history Current Complaints R shoulder and neck pain off and on over multiple years History of Current Condition Pt is a 57 year old female presenting with a long- standing history of occasional right shoulder and neck pain. Notes previously she has undergone PT, and it has been beneficial for a time, but then her pain typically comes back. 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 Additionally, pt notes that ~30 years ago, she worked at the [employer], and at one point had a roof brady come down and hit her head, which has resulted in long- standing neck pain. Currently neck and shoulder are flared- up to the point they're impacting her work activities, hurts when performing activities like lifting her purse or taking a blanket off herslef in bed. PT-OP-C Subjective Start: 10/20/23 16:11 Freq: Status: Active Protocol: Document 11/19/23 09:45 DCW (Rec: 11/19/23 10:31 DCW [id number]) OP-PT Subjective Patient Comments Patient Comments Things have calmed down a bit recently, it doesn't feel like everything is flared-up at all times. My neck still feels like it's the biggest problem . PT-OP-F Manual Assessment Start: 10/20/23 16:11 Freq: Status: Active Protocol: Document 10/20/23 09:45 DCW (Rec: 10/20/23 16:38 DCW [id number]) Manual Assessments Soft Tissue Assessment Soft Tissue Mobility Assessment Moderate tone and tenderness to palpation 2/4: Pain with wincing B UT, Scalenes, Suboccipitals, R Supraspinatus , R Infraspinatus, R Biceps Joint Mobility Assessment Joint Mobility Assessment CW rotation of C4 PT-OP-K Range of Motion Start: 10/20/23 16:11 Freq: Status: Active Protocol: Document 10/20/23 09:45 DCW (Rec: 10/20/23 16:38 DCW [id number]) Cervical Spine Range of Motion Cervical Spine Active Degrees Testing Position Sitting Flexion 40 Extension 40 Rotation Left 55 Rotation Right 55 Lateral Flexion Left 25 Lateral Flexion Right 25 ROM Limitations Soft Tissue Tightness,Bony Restriction,Muscle Tone,Pain Shoulder Goniometric Range of Motion Shoulder Right Active Shoulder ROM WFL No Testing Position Sitting Flexion 130 Abduction 116 External Rotation at 0 degrees Abduction 79 Internal Rotation Behind Back (text) T12 Left Active Shoulder ROM WFL Yes Testing Position Sitting Flexion 180 Abduction 180 External Rotation at 0 degrees Abduction 90 Internal Rotation Behind Back (text) T6 PT-OP-L Special Tests Start: 10/20/23 16:11 Freq: Status: Active Protocol: Document 10/20/23 09:45 DCW (Rec: 10/20/23 16:38 DCW [id number]) Special Tests Cervical Spine Special Tests Spurling's Test Test Results Positive Foraminal Compression Test Results Positive Shoulder Special Tests Speed's Biceps Test Results Positive R Passive ER Rotator Cuff Test Results Negative Painful Arc Test Results Positive R [employer] Impingement Test Results Positive R Grind Labrum Test Results Positive R Drop Arm Rotator Cuff Test Results Positive R Belly Press Test Results Positive R Apprehension Test Test Results Positive R PT-OP-M Strength Start: 10/20/23 16:11 Freq: Status: Active Protocol: Document 10/20/23 09:45 DCW (Rec: 10/20/23 16:38 DCW [id number]) Shoulder Strength Shoulder Manual Muscle Testing Right Flexion 3- Fair- Abduction (C5) 3- Fair- External Rotation 4 Good Internal Rotation 4 Good Comments Flexion and Abduction limited by pain PT-OP-Q Treatments Start: 10/20/23 16:11 Freq: Status: Active Protocol: Document 11/19/23 09:45 DCW (Rec: 11/19/23 10:31 DCW [id number]) Therapeutic Exercises Sitting Exercises Isometric Sitting Exercise Name Isometric cervical strengthening Reps/Minutes 5 hold x5 each direction Comments Flexion, Extension, Side- bending Manual Therapy Treatment Soft Tissue Mobilization Cervical Body Location Bilateral Cervical perispinals , upper trap, scalenes, R>L Mobilization Type Cross-Friction,Rolling Intensity/Depth Moderate Body Position Sitting Comments scalenes at lateral clavicle UE's supported, VC to breath from diaphragm Suboccipitals Body Location B Suboccipitals, SOR Mobilization Type Strumming,Sustained Pressure Body Position Hooklying Comments /c breath exhale cued allow head sink back toward table Other Other Manual Treatments Resisted L cervical rotation PT-OP-T Assessment and Plan Start: 10/20/23 16:11 Freq: Status: Active Protocol: Document 11/19/23 09:45 DCW (Rec: 11/19/23 10:31 DCW [id number]) Physical Therapy Assessment Impairments Impairments Activity Tolerance,Functional Activities,Functional Mobility ,Pain,Posture,ROM,Soft Tissue Mobility,Strength Goals Two Impairment Right shoulder ROM limited to 130? flexion and 116? 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 Pt noted increased ability to move head without pain and crunching following treatment. 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 Will schedule as possible going forward. Physical Therapy Plan Frequency and Duration Frequency of Treatment 2x/Week Plan of Care Start Date 10/20/23 Plan of Care End Date 12/19/23 Therapeutic Interventions Therapeutic Interventions Home Exercise Program,Joint Mobilizations,Manual Therapy, Neuromuscular Re-education, Patient/Caregiver Education, Self-Care/Home Management,Soft Tissue Mobilization, Therapeutic Activities, Therapeutic Exercises Modalities Cold Pack/Ice Massage,Electric Stimulation,Hot Packs, Ultrasound Next Visit Focus/Plan Next Note Type Treatment Note Next Visit Plan Assess response to manual. Review HEP tolerance. POC: Shoulder functional mobility, STM, cervical ROM
--- NOTE | 2023-12-01 10:29 | PT.OTN ---
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 Notes previously she has undergone PT, and it has been beneficial for a time, but then her pain typically comes back. 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 Additionally, pt notes that ~30 years ago, she worked at the [employer], and at one point had a roof brady come down and hit her head, which has resulted in long- standing neck pain. Currently neck and shoulder are flared- up to the point they're impacting her work activities, hurts when performing activities like lifting her purse or taking a blanket off herslef in bed. PT-OP-C Subjective Start: 10/20/23 16:11 Freq: Status: Active Protocol: Document 12/01/23 09:46 DCW (Rec: 12/01/23 10:29 DCW [id number]) OP-PT Subjective Patient Comments Patient Comments I think the work on the neck has really been helping. It's feeling a lot better. PT-OP-F Manual Assessment Start: 10/20/23 16:11 Freq: Status: Active Protocol: Document 10/20/23 09:45 DCW (Rec: 10/20/23 16:38 DCW [id number]) Manual Assessments Soft Tissue Assessment Soft Tissue Mobility Assessment Moderate tone and tenderness to palpation 2/4: Pain with wincing B UT, Scalenes, Suboccipitals, R Supraspinatus , R Infraspinatus, R Biceps Joint Mobility Assessment Joint Mobility Assessment CW rotation of C4 PT-OP-K Range of Motion Start: 10/20/23 16:11 Freq: Status: Active Protocol: Document 10/20/23 09:45 DCW (Rec: 10/20/23 16:38 DCW [id number]) Cervical Spine Range of Motion Cervical Spine Active Degrees Testing Position Sitting Flexion 40 Extension 40 Rotation Left 55 Rotation Right 55 Lateral Flexion Left 25 Lateral Flexion Right 25 ROM Limitations Soft Tissue Tightness,Bony Restriction,Muscle Tone,Pain Shoulder Goniometric Range of Motion Shoulder Right Active Shoulder ROM WFL No Testing Position Sitting Flexion 130 Abduction 116 External Rotation at 0 degrees Abduction 79 Internal Rotation Behind Back (text) T12 Left Active Shoulder ROM WFL Yes Testing Position Sitting Flexion 180 Abduction 180 External Rotation at 0 degrees Abduction 90 Internal Rotation Behind Back (text) T6 PT-OP-L Special Tests Start: 10/20/23 16:11 Freq: Status: Active Protocol: Document 10/20/23 09:45 DCW (Rec: 10/20/23 16:38 DCW [id number]) Special Tests Cervical Spine Special Tests Spurling's Test Test Results Positive Foraminal Compression Test Results Positive Shoulder Special Tests Speed's Biceps Test Results Positive R Passive ER Rotator Cuff Test Results Negative Painful Arc Test Results Positive R [employer] Impingement Test Results Positive R Grind Labrum Test Results Positive R Drop Arm Rotator Cuff Test Results Positive R Belly Press Test Results Positive R Apprehension Test Test Results Positive R PT-OP-M Strength Start: 10/20/23 16:11 Freq: Status: Active Protocol: Document 10/20/23 09:45 DCW (Rec: 10/20/23 16:38 DCW [id number]) Shoulder Strength Shoulder Manual Muscle Testing Right Flexion 3- Fair- Abduction (C5) 3- Fair- External Rotation 4 Good Internal Rotation 4 Good Comments Flexion and Abduction limited by pain PT-OP-Q Treatments Start: 10/20/23 16:11 Freq: Status: Active Protocol: Document 12/01/23 09:46 DC (Rec: 12/01/23 10:29 [facility] [id number]) Therapeutic Exercises Standing Exercises Flexion Standing Exercise Name Shoulder Flexion Side right Resistance Lv 1 Abduction Standing Exercise Name Shoulder Abduction Side right Resistance Lv 1 Comments stopped d/t pain Adduction Standing Exercise Name Shoulder Adduction Side bilateral Resistance Fountain Comments stopped d/t pain Extension Standing Exercise Name Shoulder Extension Side bilateral Resistance Green Manual Therapy Treatment Soft Tissue Mobilization pec Body Location right minor & distal major Mobilization Type Myofascial Release,Sustained Pressure,Other Intensity/Depth Superficial Body Position Hooklying Comments required pillow under right UE due to biceps stiffness light gentle strokes and PROM RUE IR/ ER/punching small range. Limited due to pain reports- stopped Cervical Body Location Bilateral Cervical perispinals , upper trap, scalenes, R>L Mobilization Type Cross-Friction,Rolling Intensity/Depth Moderate Body Position Sitting Comments scalenes at lateral clavicle UE's supported, VC to breath from diaphragm Suboccipitals Body Location B Suboccipitals, SOR Mobilization Type Strumming,Sustained Pressure Body Position Hooklying Comments /c breath exhale cued allow head sink back toward table PT-OP-T Assessment and Plan Start: 10/20/23 16:11 Freq: Status: Active Protocol: Document 12/01/23 09:46 [facility] (Rec: 12/01/23 10:29 [facility] [id number]) Physical Therapy Assessment Impairments Impairments Activity Tolerance,Functional Activities,Functional Mobility ,Pain,Posture,ROM,Soft Tissue Mobility,Strength Goals Two Impairment Right shoulder ROM limited to 130? flexion and 116? 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 Pt does still have some fairly specific pain at bicipital groove and anterior shoulder. At this point, may benefit from further advanced imaging, pt instructed to contact PCP. Physical Therapy Plan Frequency and Duration Frequency of Treatment 2x/Week Plan of Care Start Date 10/20/23 Plan of Care End Date 12/19/23 Therapeutic Interventions Therapeutic Interventions Home Exercise Program,Joint Mobilizations,Manual Therapy, Neuromuscular Re-education, Patient/Caregiver Education, Self-Care/Home Management,Soft Tissue Mobilization, Therapeutic Activities, Therapeutic Exercises Modalities Cold Pack/Ice Massage,Electric Stimulation,Hot Packs, Ultrasound Next Visit Focus/Plan Next Note Type Treatment Note Next Visit Plan Assess response to manual. Review HEP tolerance. POC: Shoulder functional mobility, STM, cervical ROM
--- NOTE | 2023-12-03 10:19 | PT.OTN ---
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 Notes previously she has undergone PT, and it has been beneficial for a time, but then her pain typically comes back. 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 Additionally, pt notes that ~30 years ago, she worked at the [employer], and at one point had a roof brady come down and hit her head, which has resulted in long- standing neck pain. Currently neck and shoulder are flared- up to the point they're impacting her work activities, hurts when performing activities like lifting her purse or taking a blanket off herslef in bed. PT-OP-C Subjective Start: 10/20/23 16:11 Freq: Status: Active Protocol: Document 12/03/23 09:47 DCW (Rec: 12/03/23 10:19 DCW [id number]) OP-PT Subjective Patient Comments Patient Comments Pt notes her shoulder pain is pretty terrible today, rates 8/10. PT-OP-F Manual Assessment Start: 10/20/23 16:11 Freq: Status: Active Protocol: Document 10/20/23 09:45 DCW (Rec: 10/20/23 16:38 DCW [id number]) Manual Assessments Soft Tissue Assessment Soft Tissue Mobility Assessment Moderate tone and tenderness to palpation 2/4: Pain with wincing B UT, Scalenes, Suboccipitals, R Supraspinatus , R Infraspinatus, R Biceps Joint Mobility Assessment Joint Mobility Assessment CW rotation of C4 PT-OP-K Range of Motion Start: 10/20/23 16:11 Freq: Status: Active Protocol: Document 10/20/23 09:45 DCW (Rec: 10/20/23 16:38 DCW [id number]) Cervical Spine Range of Motion Cervical Spine Active Degrees Testing Position Sitting Flexion 40 Extension 40 Rotation Left 55 Rotation Right 55 Lateral Flexion Left 25 Lateral Flexion Right 25 ROM Limitations Soft Tissue Tightness,Bony Restriction,Muscle Tone,Pain Shoulder Goniometric Range of Motion Shoulder Right Active Shoulder ROM WFL No Testing Position Sitting Flexion 130 Abduction 116 External Rotation at 0 degrees Abduction 79 Internal Rotation Behind Back (text) T12 Left Active Shoulder ROM WFL Yes Testing Position Sitting Flexion 180 Abduction 180 External Rotation at 0 degrees Abduction 90 Internal Rotation Behind Back (text) T6 PT-OP-L Special Tests Start: 10/20/23 16:11 Freq: Status: Active Protocol: Document 10/20/23 09:45 DCW (Rec: 10/20/23 16:38 DCW [id number]) Special Tests Cervical Spine Special Tests Spurling's Test Test Results Positive Foraminal Compression Test Results Positive Shoulder Special Tests Speed's Biceps Test Results Positive R Passive ER Rotator Cuff Test Results Negative Painful Arc Test Results Positive R [employer] Impingement Test Results Positive R Grind Labrum Test Results Positive R Drop Arm Rotator Cuff Test Results Positive R Belly Press Test Results Positive R Apprehension Test Test Results Positive R PT-OP-M Strength Start: 10/20/23 16:11 Freq: Status: Active Protocol: Document 10/20/23 09:45 DCW (Rec: 10/20/23 16:38 DCW [id number]) Shoulder Strength Shoulder Manual Muscle Testing Right Flexion 3- Fair- Abduction (C5) 3- Fair- External Rotation 4 Good Internal Rotation 4 Good Comments Flexion and Abduction limited by pain PT-OP-Q Treatments Start: 10/20/23 16:11 Freq: Status: Active Protocol: Document 12/03/23 09:47 DCW (Rec: 12/03/23 10:19 DC [id number]) Manual Therapy Treatment Soft Tissue Mobilization Cervical Body Location Bilateral Cervical perispinals , upper trap, scalenes, R>L Mobilization Type Cross-Friction,Rolling Intensity/Depth Moderate Body Position Sitting Comments scalenes at lateral clavicle UE's supported, VC to breath from diaphragm Suboccipitals Body Location B Suboccipitals, SOR Mobilization Type Strumming,Sustained Pressure Body Position Hooklying Comments /c breath exhale cued allow head sink back toward table PT-OP-T Assessment and Plan Start: 10/20/23 16:11 Freq: Status: Active Protocol: Document 12/03/23 09:47 DC (Rec: 12/03/23 10:19 [facility] [id number]) Physical Therapy Assessment Impairments Impairments Activity Tolerance,Functional Activities,Functional Mobility ,Pain,Posture,ROM,Soft Tissue Mobility,Strength Goals Two Impairment Right shoulder ROM limited to 130? flexion and 116? abduction Longterm Goal (LTG) Pt to improve pain-free right shoulder mobility to >145? 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 Does note improvement in c- spine. Plan at this point to discharge from skilled PT, pt wants to see ortho and potentially get MRI. Understands she can return with a new referral if necessary. Physical Therapy Plan Frequency and Duration Frequency of Treatment 2x/Week Plan of Care Start Date 10/20/23 Plan of Care End Date 12/19/23 Therapeutic Interventions Therapeutic Interventions Home Exercise Program,Joint Mobilizations,Manual Therapy, Neuromuscular Re-education, Patient/Caregiver Education, Self-Care/Home Management,Soft Tissue Mobilization, Therapeutic Activities, Therapeutic Exercises Modalities Cold Pack/Ice Massage,Electric Stimulation,Hot Packs, Ultrasound Discharge Physical Therapy Discharge Reasons Plateau in Progress Next Visit Focus/Plan Next Note Type Discharge Summary
== END 2023-12-04 13:03 | disposition home or self-care (01) ==
LOC: PHYS 09:45
PROVIDERS: Family Provider Physician Assistant; PCP Physician Assistant; Referring Provider Family Medicine; Visit Provider Family Medicine
DX: M25.511 Pain in right shoulder (principal); S46.191D Other injury of muscle, fascia and tendon of long head of biceps, right arm, subsequent encounter; M25.611 Stiffness of right shoulder, not elsewhere classified
CPT/HCPCS: 97110; 97140; 97163

== ENCOUNTER → 2024-02-18 10:40 | Outpatient (CLI) | payer OTHER, SELFPAY ==
--- NOTE | 2024-02-18 10:41 | DI.MRI.S_ITS ---
PROCEDURE: MR SHOULDER RT WO CON INDICATIONS: Pain in right shoulder TECHNIQUE: Noncontrast oblique coronal T2 fast spin echo with fat saturation, oblique sagittal T1 spin echo and T2 fast spin echo with fat saturation, axial T1 spin echo and T2 fast spin echo with fat saturation through the shoulder. COMPARISON: None. FINDINGS: Image quality: Excellent. Rotator cuff: There is mild T2 signal elevation diffusely throughout the supraspinatus and infraspinatus tendons at the humeral insertion sites extending to the musculotendinous junctions, indicating tendinopathy. Superimposed low-grade intrasubstance tearing of the anterior and mid supraspinatus tendon at the humeral insertion site. Superimposed low-grade bursal surface tearing of the mid/posterior supraspinatus tendon at the musculotendinous junction. Subscapularis, infraspinatus, and teres minor tendons are intact. Bones and bursae: No bone marrow contusions or fractures. Mild glenohumeral and acromioclavicular joint degeneration. The acromion demonstrates conventional anatomy, without an os acromiale. No pathologic subacromial-subdeltoid or subcoracoid bursal fluid is present. Capsule and soft tissues: Labrum is grossly intact The long head of the biceps tendon demonstrates normal location and morphology. The rotator interval appears normal, without fibrosis. The coracohumeral ligament is normal in thickness. IMPRESSION: 1. Supraspinatus and infraspinatus tendinopathy. Superimposed low-grade tearing of the supraspinatus. No full-thickness rotator cuff tear. 2. Acromioclavicular and glenohumeral joint osteoarthritis. Dictated by: Ronak Strong M.D. on 02/18/2024 at 11:51 Approved by: Ronak Strong M.D. on 02/18/2024 at 11:53
== END ==
PROVIDERS: Family Provider Physician Assistant; PCP Family Medicine; Referring Provider Orthopaedic Surgery; Visit Provider Orthopaedic Surgery
DX: M75.111 Incomplete rotator cuff tear or rupture of right shoulder, not specified as traumatic (principal); M19.011 Primary osteoarthritis, right shoulder; M25.511 Pain in right shoulder
CPT/HCPCS: 73221

== ENCOUNTER → 2024-02-18 12:39 | Outpatient (CLI) | payer OTHER, SELFPAY ==
--- NOTE | 2024-02-18 12:41 | DI.RAD.S_ITS ---
PROCEDURE: XR DEXA AXIAL SKELETON INDICATIONS: Menopausal and female climacteric states COMPARISON: None. FINDINGS: Lumbar Spine: Bone mineral density 1.100 g/cm2, T score 0.5. Left Hip: Bone mineral density is 0.763 g/cm2, T score -1.5. Left Femoral Neck: Bone mineral density 0.586 g/cm2, T score -2.4. Right Hip: Bone mineral density 0.750 g/cm2, T score -1.6. Right Femoral Neck: Bone mineral density 0.585 g/cm2, T score -2.4. Fracture Risk Calculation (when applicable): 10-year fracture risk of a major osteoporotic fracture 20% and of a hip fracture 1.8%. (T score greater or equal to -1.0 to: NORMAL) (T score from -1.1 to -2.4: OSTEOPENIA) (T score less than or equal to -2.5: OSTEOPOROSIS) IMPRESSION: Severe osteopenia. Follow-up guidelines as follows: Osteoporosis: Consider a repeat DEXA and Vertebral Fracture Assessment (VFA) exam in 2 years or sooner if medically necessary, to reassess this patient's status. Osteopenia: Consider a repeat DEXA in 2-3 years to reassess this patient's status, or if there is a new clinical indication. Normal: Consider a repeat DEXA in 5 years or sooner, or if there is a new clinical indication. All treatment decisions require clinical judgment and consideration of individual patient factors, including patient preferences, comorbidities, previous drug use, risk factors not captured in the FRAX model (e.g., frailty, falls, vitamin D deficiency, increased bone turnover, interval significant decline in bone density ) and possible under- or over-estimation of fracture risk by FRAX. In addition, the NOF Guide recommends that FDA-approved medical therapies be considered in postmenopausal women and men age >= 50 years with a: * Hip or vertebral (clinical or morphometric) fracture * T-score of <=-2.5 at the spine or hip * Ten-year fracture probability by FRAX of >= 3% for hip fracture or >=20% for major osteoporotic fracture. People with diagnosed cases of osteoporosis or at high risk for fracture should have regular bone mineral density tests. For patients eligible for Medicare, routine testing is allowed once every 2 years. The testing frequency can be increased to one year for patients who have rapidly progressing disease, those who are receiving or discontinuing medical therapy to restore bone mass, or have additional risk factors. Dictated by: Melvin Miguel M.D. on 02/18/2024 at 16:41 Approved by: Melvin Miguel M.D. on 02/18/2024 at 16:43
== END ==
PROVIDERS: Family Provider Physician Assistant; PCP Family Medicine; Referring Provider Family Medicine; Visit Provider Family Medicine
DX: M75.111 Incomplete rotator cuff tear or rupture of right shoulder, not specified as traumatic (principal); M85.89 Other specified disorders of bone density and structure, multiple sites; N95.1 Menopausal and female climacteric states; M19.011 Primary osteoarthritis, right shoulder; M25.511 Pain in right shoulder; Z82.62 Family history of osteoporosis
CPT/HCPCS: 73221; 77080

== ENCOUNTER → 2024-08-05 09:06 | Outpatient (CLI) | payer OTHER, SELFPAY ==
--- NOTE | 2024-08-05 09:07 | DI.MG.S_ITS ---
BILATERAL DIGITAL SCREENING MAMMOGRAM 3D/2D WITH CAD: 08/05/2024 CLINICAL: Routine screening. Comparison is made to exams dated: 08/04/2023 mammogram, 08/01/2022 mammogram, and 07/31/2021 mammogram - [facility]. There are scattered areas of fibroglandular density (category b / 25%-50% glandular tissue). Current study was also evaluated with a Computer Aided Detection (CAD) system. No significant masses, calcifications, or other findings are seen in either breast. There has been no significant interval change. IMPRESSION: NEGATIVE There is no mammographic evidence of malignancy. A 1 year screening mammogram is recommended. Based on the Tyrer Cuzick model (a risk assessment model) the patient's lifetime risk is 9.6% and her 10 year risk is 3.7%. According to the ACR, ACS, and NCCN guidelines, an annual breast MRI exam along with mammogram is recommended if the patient's lifetime risk is 20% or greater. This exam was interpreted at Station ID: [id number]. NOTE: For mammograms, a report in lay terms will be sent to the patient. Approximately 15% of breast malignancies will not be visualized mammographically. In the management of a palpable breast mass, a negative mammogram must not discourage biopsy of a clinically suspicious lesion. Electronically Signed By: Missy gregory/ban:08/05/2024 10:30:38 letter sent: Normal Exam ACR BI-RADS Category 1: Negative
== END ==
PROVIDERS: Family Provider Physician Assistant; PCP Family Medicine; Referring Provider Family Medicine; Visit Provider Family Medicine
DX: Z12.31 Encounter for screening mammogram for malignant neoplasm of breast (principal)
CPT/HCPCS: 77063; 77067

== ENCOUNTER → 2025-08-06 09:46 | Outpatient (CLI) | payer OTHER, SELFPAY ==
--- NOTE | 2025-08-06 09:46 | DI.MG.S_ITS ---
MM screening mammo BI: 08/06/2025. BI-RADS: 1 CLINICAL: 59-year old female for bilateral screening mammogram. Tyrer-Cuzick lifetime risk of 6.5%. No personal or first-degree family history of breast cancer. PRIOR EXAMS 08/05/2024, 08/04/2023, 08/01/2022, 07/31/2021. MAMMOGRAPHY TECHNIQUE: 2D and 3D (tomosynthesis) digital mammographic views obtained, with additional images as needed for full coverage. Current study was also evaluated with a Computer Aided Detection (CAD) system. DENSITY B. There are scattered areas of fibroglandular density. MAMMOGRAPHY FINDINGS Bilateral: No suspicious mass, asymmetry, microcalcification, or other abnormality seen. IMPRESSION: * No evidence of malignancy. RECOMMENDATIONS Bilateral * Annual screening mammography. OVERALL ASSESSMENT CATEGORY BI-RADS-1: Negative. The [employer] recommends annual screening mammography beginning at age 40 for women with average risk of breast cancer. ELECTRONICALLY SIGNED: Serina Steel M.D. on 08/08/2025 at 05:24:49 PM PT Interpreting Station ID: [id number]
== END ==
LOC: MAMMO 09:46
PROVIDERS: Family Provider Physician Assistant; PCP Family Medicine; Referring Provider Family Medicine; Visit Provider Family Medicine
DX: Z12.31 Encounter for screening mammogram for malignant neoplasm of breast (principal)
CPT/HCPCS: 77063; 77067